=== PATIENT | male | born 1960 | race African-American/Black ===

== ENCOUNTER 2018-07-04 19:39 | Emergency (ER) | payer SELFPAY ==
[~2018-07-04] VITALS: Ht 157.5 cm; Wt 73.9 kg
[2018-07-04] MEDS ORDERED: Tetanus/Diptheria/Pertussis Vaccine 0.5ml Syr IM ONE (20:00)
[2018-07-04] MEDS ORDERED: CEPHALEXIN500 MG ORAL (20:26)
--- NOTE | 2018-07-04 20:29 | Emergency Room Report ---
History of Present Illness General Chief Complaint: Laceration Source: Patient Present Illness [facility] This is a 58-year-old male who is right-hand dominant. He presents with chief complaint of laceration to his right thumb. He was moving a metal cart and try to lifted up and it slipped and he sustained a laceration to his right thumb on the volar aspect. This occurred about 4 hours ago. He is right-hand dominant. No other injury. No foreign body. No fever chills but no nausea no vomiting. Pain is 5 out of 10. Allergies: Coded Allergies: No Known Allergies (Unverified , 07/04/18) Patient History Past Medical History: see triage record, old chart reviewed Past Surgical History: none Pertinent Family History: none Social History: Denies: smoking Immunizations: other Reviewed Nursing Documentation: PMH: Agreed; PSxH: Agreed Nursing Documentation-PMH Past Medical History: No Stated History Review of Systems Eye: Denies: eye pain, blurred vision ENT: Denies: ear pain, nose congestion, throat swelling Respiratory: Denies: cough, shortness of breath Cardiovascular: Denies: chest pain, palpitations Gastrointestinal: Denies: abdominal pain, diarrhea, nausea, vomiting Musculoskeletal: Denies: back pain, joint pain Skin: Denies: rash Neurological: Denies: headache, numbness Endocrine: Denies: increased thirst, increased urine Hematologic/Lymphatic: Denies: easy bruising All Other Systems: negative except mentioned in HPI Physical Exam Vital Signs Date Time Temp Pulse Resp B/P (MAP) Pulse Ox O2 Delivery O2 Flow Rate FiO2 07/04/18 19:43 97.7 78 18 135/76 97 Room Air vitals normal Sp02 EP Interpretation: reviewed, normal General Appearance: well appearing, no apparent distress, alert Head: normocephalic, atraumatic Eyes: bilateral eye PERRL, bilateral eye EOMI ENT: hearing grossly normal, normal pharynx Neck: full range of motion, supple, no meningismus Respiratory: chest non-tender, lungs clear, normal breath sounds Cardiovascular #1: regular rate, rhythm, no murmur Gastrointestinal: normal bowel sounds, non tender, no mass, no organomegaly, no bruit, non-distended Musculoskeletal: back normal, gait/station normal, normal range of motion, other - Right thumb: There is a 5 cm laceration on the volar aspect of the thumb. It extends from the proximal phalanx to the mid distal phalanx. No foreign body. No tendon laceration. Jagged. Neurologic: alert, oriented x3 Psychiatric: mood/affect normal Skin: warm/dry Procedures Laceration/Wound Repair Laceration/Wound Repair : Consent: Verbal Wound Location: upper extremity Wound's Depth, Shape: irregular, flap, contused tissue Wound Length (cm): 5 Wound Explored: clean Irrigated w/ Saline (ccs): 1000 Volume Anesthetic (ccs): 3 Wound Debrided: minimal Wound Repaired With: sutures Suture Size/Type: 5:0, proline Number of Sutures: 11 Patient Tolerated: Well Complications: None Medical Decision Making Diagnostic Impression: Primary Impression: Laceration ER Course Patient with a finger laceration. No tendon involvement or foreign body. MCP and DIP joint full range of motion without limitation. Last Vital Signs Date Time Temp Pulse Resp B/P (MAP) Pulse Ox O2 Delivery O2 Flow Rate FiO2 07/04/18 19:43 97.7 78 18 135/76 97 Room Air Status: improved Disposition: HOME, SELF-CARE Condition: Stable Scripts Cephalexin* (KEFLEX*) 500 Mg Capsule 500 MG ORAL TID, #21 CAP Prov: Jamil Child MD 07/04/18 Patient Instructions: Laceration Care, Adult Additional Instructions: Wear finger splint for 2-3 days. Keep wound clean. Apply antibiotic ointment. Follow-up with your doctor in 7-10 days for suture removal. Return if worse. Jamil Child MD Jul 04, 2018 20:29
[2018-07-04 20:36] VITALS: BP 135/76
== END 2018-07-04 20:35 | disposition home or self-care (01) ==
LOC: EMR 20:13
DX: S61.011A Laceration without foreign body of right thumb without damage to nail, initial encounter (principal); Z23 Encounter for immunization; W26.8XXA Contact with other sharp object(s), not elsewhere classified, initial encounter
CPT/HCPCS: 90471; 90715; 99283

== ENCOUNTER 2018-07-22 16:07 | Emergency (ER) | payer OTHER ==
[~2018-07-22] VITALS: Ht 157.5 cm; Wt 74.8 kg
[~2018-07-22 16:07] MED LIST: CEPHALEXIN500 MG ORAL
[2018-07-22] MEDS ORDERED: NKM (16:29)
[2018-07-22 16:35] VITALS: BP 132/79
--- NOTE | 2018-07-22 17:35 | Emergency Room Report ---
History of Present Illness General Chief Complaint: Wound Recheck/Suture Removal Source: Patient Present Illness HPI 58-year-old male presents to the emergency department complaining of previously sutured laceration on the right thumb that needs suture removal. Patient states that laceration was closed over 2 weeks ago. Patient reports itching. He denies pain, tenderness, erythema, warmth or discharge. Patient states he is up-to-date with his tetanus vaccination, and denies other symptoms at this time. Allergies: Coded Allergies: No Known Allergies (Unverified , 07/04/18) Patient History Past Medical History: see triage record Past Surgical History: none Pertinent Family History: none Reviewed Nursing Documentation: PMH: Agreed; PSxH: Agreed Nursing Documentation-PMH Past Medical History: No Stated History Review of Systems All Other Systems: negative except mentioned in HPI Physical Exam Vital Signs Date Time Temp Pulse Resp B/P (MAP) Pulse Ox O2 Delivery O2 Flow Rate FiO2 07/22/18 16:27 98.2 67 18 132/79 99 Room Air Sp02 EP Interpretation: reviewed, normal General Appearance: no apparent distress, alert, GCS 15, non-toxic Head: normocephalic, atraumatic Eyes: bilateral eye normal inspection, bilateral eye PERRL ENT: hearing grossly normal, normal voice Neck: full range of motion Respiratory: lungs clear, normal breath sounds, speaking full sentences Cardiovascular #1: regular rate, rhythm, normal capillary refill Musculoskeletal: back normal, gait/station normal, normal range of motion, non- tender Neurologic: alert, oriented x3, responsive, motor strength/tone normal, sensory intact, speech normal, grossly normal Psychiatric: judgement/insight normal Skin: normal color, no rash, warm/dry, well hydrated, wd healing/no infection noted - healed laceration of the Right thumb. Medical Decision Making PA Attestation Dr. España is my supervising Physician whom patient management has been discussed with. Diagnostic Impression: Primary Impression: Encounter for removal of sutures ER Course 58-year-old male presents to the emergency department complaining of previously sutured laceration on the right thumb that needs suture removal. Patient states that laceration was closed over 2 weeks ago. Patient reports itching. He denies pain, tenderness, erythema, warmth or discharge. Patient states he is up-to-date with his tetanus vaccination, and denies other symptoms at this time. Ddx considered but are not limited to laceration, tendon injury, cellulitis, dehiscence. Vital signs: are WNL, pt. is afebrile H&PE are most consistent with: healed laceration of the Right thumb. ORDERS: none required at this time, the diagnosis is clinical ED INTERVENTIONS: - 11 Sutures removed. DISCHARGE: At this time pt. is stable for d/c to home. Will provide printed patient care instructions, and any necessary prescriptions. Care plan and follow up instructions have been discussed with the patient prior to discharge. Last Vital Signs Date Time Temp Pulse Resp B/P (MAP) Pulse Ox O2 Delivery O2 Flow Rate FiO2 07/22/18 16:27 98.2 67 18 132/79 99 Room Air Disposition: HOME, SELF-CARE Condition: Stable Scripts Bacitracin/Polymyxin B Sulfate (BACITRACIN-POLYMYXIN OINTMENT) 28.35 Gm Oint...g. 1 APPLIC TP BID, #28.3 GM Prov: Nora Lin 07/22/18 Patient Instructions: Suture Removal, Care After Additional Instructions: Take medications as directed. Follow up with a Primary Care Provider in 3-5 days, even if your symptoms have resolved. --Please review list of primary care clinics, if you do not already have a primary care provider Return sooner to ED if new symptoms occur, or current symptoms become worse. - Please note that this Emergency Department Report was dictated using [employer] liability analyst technology software, occasionally this can lead to erroneous entry secondary to interpretation by the dictation equipment. Nora Lin Jul 22, 2018 17:35
[2018-07-22] MEDS ORDERED: BACITRACIN-P28.35 GM TP (17:36)
[2018-07-22 18:10] VITALS: BP 125/65
== END 2018-07-22 18:10 | disposition home or self-care (01) ==
LOC: EMR 18:09
DX: Z48.02 Encounter for removal of sutures (principal)
CPT/HCPCS: 99283